=== PATIENT | male | born 1965 | race Asian ===

== ENCOUNTER 2019-12-27 11:00 | Inpatient (IN) ==
[2019-12-27 14:24] LABS: Red Cell Distribution Width 13.4 % (11.5-14.5)
[2019-12-27 14:25] LABS: Hematocrit 36.3 % (37.5-50.1); Immature Platelets 6.4 % (1.1-6.1); Mean Corpuscular HGB Conc 33.1 g/dL (31.6-35.5); Mean Corpuscular Hemoglobin 30.8 pg (28.0-33.3); Mean Corpuscular Volume 93.1 fL (83.0-100.0); Mean Platelet Volume 10.7 fL (9.4-12.4); White Blood Count 2.7 K/mcL (4.3-11.1)
[2019-12-27 14:28] LABS: INR 1.1; Prothrombin Time 13.2 Seconds (9.4-12.1)
[2019-12-27 14:30] LABS: Activated Partial Thrombo Time 35.3 Seconds (26.0-36.0)
[2019-12-27 14:42] LABS: Alanine Aminotransferase 11 Units/L (7-52); Alkaline Phosphatase 241 Units/L (34-104); Aspartate Amino Transferase 30 Units/L (13-39); BUN/Creatinine Ratio 6 (6-26); Bilirubin,Direct 0.3 mg/dL (0.0-0.2); Bilirubin,Indirect 0.4 mg/dL (0.0-1.0); Bilirubin,Total 0.7 mg/dL (0.3-1.0); Blood Urea Nitrogen 29 mg/dL (6-20); C-Reactive Protein 29 mg/L (Less than 10); Calcium 8.5 mg/dL (8.6-10.3); Carbon Dioxide 27 mEq/L (23-29); Chloride 83 mEq/L (98-107); Globulin 3.9 g/dL (2.4-3.5); Glucose 126 mg/dL (70-105); Lactate Dehydrogenase 122 Units/L (140-271); Magnesium 1.9 mg/dL (1.6-2.6); Osmolality,Calculated 259 (280-300); Phosphorous 4.3 mg/dL (2.7-4.5); Potassium 3.9 mEq/L (3.5-5.1); Sodium 121 mEq/L (136-145); Total Protein 7.9 g/dL (6.4-8.9); Troponin I < 0.03 ng/mL (< 0.04); eGFR For African Americans 15 (> 60); eGFR For Non-African Americans 13 (> 60)
[2019-12-27 14:45] LABS: Procalcitonin 0.34 ng/mL (0.00-0.15)
[2019-12-27 14:57] LABS: Ferritin 1084 ng/mL (20-250)
[2019-12-27 15:01] LABS: Platelet Count 86 K/mcL (140-400)
[2019-12-27 15:09] LABS: Lymphocytes # 1.1 K/mcL (0.6-4.6); Monocytes # 0.4 K/mcL (0.0-1.3); Neutrophils # 1.3 K/mcL (1.6-8.9); Platelet Estimate Slight Decrease (Normal); Reactive Lymphocytes Present (Not Present)
[2019-12-27 16:17] LABS: Hepatitis B Surface Antibody > 850.00 mIU/mL
[2019-12-27 16:28] LABS: Hepatitis B Surface Antigen Nonreactive (Nonreactive)
[2019-12-27] MEDS ORDERED: Naloxone 0.4 MG/ML INJ IVP PRN (16:54)
[2019-12-27] MEDS ORDERED: Furosemide 40 MG/4 ML VIAL IVP ONE (17:07)
[2019-12-27] MEDS ORDERED: Dexamethasone 4 MG/ML VIAL IVP PRN (17:08)
[2019-12-27] MEDS ORDERED: D5% in Water 1,000 ML IVC PRN (17:42)
[2019-12-27] MEDS ORDERED: *HR* Dextrose 50 % in Water (Vial) 50 ML VIAL IVP PRN (17:42)
[2019-12-27] MEDS ORDERED: Dextrose Gel 15 GM/37.5 ML TUBE PO PRN ×2 (17:42)
[2019-12-27] MEDS: amLODIPine 5 MG TABLET PO SCH (18:22)
[2019-12-27] MEDS: cefTRIAXone 1,000 MG in 0.9 % Sodium Chloride Mini Bag 100 ML IVPB SCH (18:22)
[2019-12-27] MEDS: Azithromycin 500 MG in 0.9 % Sodium Chloride 250 ML IVPB SCH (18:22)
[2019-12-27] MEDS: *HR* HYDROcodone/Acet 5/325 mg TABLET PO PRN (18:23)
[2019-12-27] MEDS: *HR* Heparin 5,000 UNIT/ML VIAL SQ SCH (18:23)
[2019-12-27] MEDS: Melatonin 3 MG TABLET PO SCH (20:18)
[2019-12-27] MEDS: levETIRAcetam 250 MG TABLET PO SCH (20:18)
[2019-12-27] MEDS: OLANZapine 5 MG TAB.RAPDIS PO SCH (20:18)
[2019-12-27] MEDS: CarBAMazepine XR (12 hr) 100 MG TAB PO SCH (20:18)
[2019-12-27] MEDS: traZODone 50 MG TABLET PO SCH (20:18)
[2019-12-27] MEDS: Insulin LISPRO 300 UNITS/3 ML VIAL SQ SCH (20:19)
[2019-12-27] MEDS: Ergocalciferol (VIT D2) 50,000 UNIT (1.25MG) CAP PO SCH ×2 (21:33→22:06)
[2019-12-27] MEDS: Hydrocortisone Lotion 59 ML BOTTLE TP SCH (22:03)
[2019-12-27] MEDS: Acetaminophen 325 MG TABLET PO PRN (23:24)
[2019-12-28 01:18] LABS: Immature Granulocytes % 0.7 % (0-4); Mean Platelet Volume 11.2 fL (9.4-12.4); Red Cell Distribution Width 13.3 % (11.5-14.5)
[2019-12-28 01:20] LABS: Hematocrit 33.7 % (37.5-50.1); Hemoglobin 11.4 g/dL (12.9-16.9); Immature Platelets 7.5 % (1.1-6.1); Lymphocytes # 0.5 K/mcL (0.6-4.6); Lymphocytes % 16.8 %; Mean Corpuscular HGB Conc 33.8 g/dL (31.6-35.5); Mean Corpuscular Hemoglobin 29.9 pg (28.0-33.3); Mean Corpuscular Volume 88.5 fL (83.0-100.0); Monocytes # 0.2 K/mcL (0.0-1.3); Monocytes % 7.5 %; Neutrophils # 2.1 K/mcL (1.6-8.9); Red Blood Count 3.81 M/mcL (4.19-5.50); White Blood Count 2.8 K/mcL (4.3-11.1)
[2019-12-28 01:26] LABS: Platelet Count 77 K/mcL (140-400)
[2019-12-28] MEDS: *HR* HYDROcodone/Acet 5/325 mg TABLET PO PRN ×2 (01:29→19:59)
[2019-12-28 01:37] LABS: Calcium 8.3 mg/dL (8.6-10.3); Phosphorous 4.6 mg/dL (2.7-4.5); Potassium 4.1 mEq/L (3.5-5.1)
[2019-12-28] MEDS: *HR* Heparin 5,000 UNIT/ML VIAL SQ SCH ×3 (05:28→17:47)
[2019-12-28] MEDS ORDERED: Furosemide 40 MG/4 ML VIAL IVP SCH (08:00)
[2019-12-28] MEDS: Insulin LISPRO 300 UNITS/3 ML VIAL SQ SCH ×4 (08:36→22:13)
[2019-12-28] MEDS: amLODIPine 5 MG TABLET PO SCH (08:38)
[2019-12-28] MEDS: CarBAMazepine XR (12 hr) 100 MG TAB PO SCH ×2 (08:38→19:59)
[2019-12-28] MEDS: Hydrocortisone Lotion 59 ML BOTTLE TP SCH ×3 (08:39→19:59)
[2019-12-28] MEDS: levETIRAcetam 250 MG TABLET PO SCH ×2 (08:39→19:59)
[2019-12-28] MEDS ORDERED: *HR* Heparin 10,000 UNIT/10 ML VIAL IV PRN ×2 (08:50)
[2019-12-28] MEDS ORDERED: 0.9 % Sodium Chloride 250 ML IVC PRN (08:50)
[2019-12-28] MEDS ORDERED: 0.9 % Sodium Chloride 1,000 ML PRIME SCH (09:00)
[2019-12-28] MEDS ORDERED: Dexamethasone 4 MG/ML VIAL IVP SCH (10:15)
[2019-12-28] MEDS ORDERED: hydrALAZINE 10 MG TABLET PO SCH (10:30)
[2019-12-28 13:18] LABS: Estimated Average Glucose 128 mg/dl
[2019-12-28 15:08] LABS: Adenovirus Not Detected (Not Detect); Coronavirus 229E Not Detected (Not Detect); Coronavirus HKU1 Not Detected (Not Detect); Coronavirus NL63 Not Detected (Not Detect); Coronavirus OC43 Not Detected (Not Detect)
[2019-12-28 15:10] LABS: Bordetella Pertussis Not Detected (Not Detect); Chlamydophila pneumoniae Not Detected (Not Detect); Human Metapneumovirus Not Detected (Not Detect); Human Rhinovirus/Enterovirus Not Detected (Not Detect); Influenza A Subtype 2009 H1 Not Detected (Not Detect); Influenza B Not Detected (Not Detect); Mycoplasma pneumoniae Not Detected (Not Detect); Parainfluenza Virus 1 Not Detected (Not Detect); Parainfluenza Virus 2 Not Detected (Not Detect); Parainfluenza Virus 3 Not Detected (Not Detect); Parainfluenza Virus 4 Not Detected (Not Detect); Respiratory Syncytial Virus Not Detected (Not Detect); SARS-CoV-2 DETECTED (Not Detect)
[2019-12-28] MEDS: Azithromycin 500 MG in 0.9 % Sodium Chloride 250 ML IVPB SCH (17:31)
[2019-12-28] MEDS: cefTRIAXone 1,000 MG in 0.9 % Sodium Chloride Mini Bag 100 ML IVPB SCH (17:31)
[2019-12-28] MEDS: OLANZapine 5 MG TAB.RAPDIS PO SCH (19:59)
[2019-12-28] MEDS: Melatonin 3 MG TABLET PO SCH (19:59)
[2019-12-28] MEDS: traZODone 50 MG TABLET PO SCH (19:59)
[2019-12-28] MEDS ORDERED: 0.9 % Sodium Chloride 250 ML ONE (23:08)
[2019-12-29] MEDS: *HR* HYDROcodone/Acet 5/325 mg TABLET PO PRN ×3 (03:16→23:54)
[2019-12-29 03:58] LABS: Eosinophils % 0.3 %; Immature Granulocytes % 0.3 % (0-4); Mean Corpuscular Volume 92.9 fL (83.0-100.0)
[2019-12-29 04:00] LABS: Basophils % 0.5 %; Hematocrit 32.8 % (37.5-50.1); Hemoglobin 10.9 g/dL (12.9-16.9); Immature Platelets 6.6 % (1.1-6.1); Lymphocytes # 0.9 K/mcL (0.6-4.6); Lymphocytes % 21.3 %; Mean Corpuscular HGB Conc 33.2 g/dL (31.6-35.5); Mean Corpuscular Hemoglobin 30.9 pg (28.0-33.3); Mean Platelet Volume 11.2 fL (9.4-12.4); Monocytes # 0.6 K/mcL (0.0-1.3); Monocytes % 14.8 %; Neutrophils # 2.5 K/mcL (1.6-8.9); Red Blood Count 3.53 M/mcL (4.19-5.50); Red Cell Distribution Width 13.5 % (11.5-14.5); Segmented Neutrophils % 62.8 %
[2019-12-29 04:01] LABS: Platelet Count 83 K/mcL (140-400)
[2019-12-29 04:10] LABS: Phosphorous 4.3 mg/dL (2.7-4.5)
[2019-12-29 04:11] LABS: Calcium 8.3 mg/dL (8.6-10.3); Potassium 4.1 mEq/L (3.5-5.1)
[2019-12-29] MEDS: *HR* Heparin 5,000 UNIT/ML VIAL SQ SCH ×2 (05:19→17:03)
[2019-12-29] MEDS: Insulin LISPRO 300 UNITS/3 ML VIAL SQ SCH ×4 (07:44→20:30)
[2019-12-29] MEDS ORDERED: Furosemide 40 MG/4 ML VIAL IVP ONE (07:45)
[2019-12-29] MEDS ORDERED: Spironolactone 25 MG TABLET PO ONE (07:45)
[2019-12-29] MEDS: amLODIPine 5 MG TABLET PO SCH (07:53)
[2019-12-29] MEDS: levETIRAcetam 250 MG TABLET PO SCH ×2 (07:53→20:34)
[2019-12-29] MEDS: hydrALAZINE 10 MG TABLET PO SCH ×3 (07:53→20:35)
[2019-12-29] MEDS: CarBAMazepine XR (12 hr) 100 MG TAB PO SCH ×2 (07:53→20:34)
[2019-12-29] MEDS: Hydrocortisone Lotion 59 ML BOTTLE TP SCH ×3 (08:19→20:43)
[2019-12-29] MEDS ORDERED: 0.9 % Sodium Chloride 250 ML IVC PRN (09:22)
[2019-12-29] MEDS ORDERED: 0.9 % Sodium Chloride 1,000 ML PRIME SCH (09:30)
[2019-12-29] MEDS ORDERED: *HR* Labetalol 20 MG/4 ML SYRINGE IVP ONE ×2 (12:14→17:56)
[2019-12-29] MEDS: Azithromycin 250 MG TABLET PO SCH (17:01)
[2019-12-29] MEDS: cefTRIAXone 1,000 MG in Water for inj. (sterile) 10 ML IVP SCH (17:02)
[2019-12-29] MEDS: traZODone 50 MG TABLET PO SCH (20:34)
[2019-12-29] MEDS: OLANZapine 5 MG TAB.RAPDIS PO SCH (20:34)
[2019-12-29] MEDS: Melatonin 3 MG TABLET PO SCH (20:35)
[2019-12-30 04:12] LABS: Basophils % 0.6 %; Eosinophils % 0.3 %; Hemoglobin 10.5 g/dL (12.9-16.9); Red Cell Distribution Width 13.8 % (11.5-14.5)
[2019-12-30 04:14] LABS: Hematocrit 32.7 % (37.5-50.1); Immature Granulocytes % 0.6 % (0-4); Immature Platelets 7.6 % (1.1-6.1); Lymphocytes # 0.9 K/mcL (0.6-4.6); Lymphocytes % 25.3 %; Mean Corpuscular HGB Conc 32.1 g/dL (31.6-35.5); Mean Corpuscular Hemoglobin 29.8 pg (28.0-33.3); Mean Corpuscular Volume 92.9 fL (83.0-100.0); Mean Platelet Volume 11.4 fL (9.4-12.4); Monocytes # 0.7 K/mcL (0.0-1.3); Monocytes % 19.2 %; Neutrophils # 1.9 K/mcL (1.6-8.9); Platelet Count 75 K/mcL (140-400); Red Blood Count 3.52 M/mcL (4.19-5.50); White Blood Count 3.6 K/mcL (4.3-11.1)
[2019-12-30 04:19] LABS: Calcium 8.4 mg/dL (8.6-10.3); Magnesium 1.9 mg/dL (1.6-2.6); Phosphorous 3.8 mg/dL (2.7-4.5); Potassium 4.2 mEq/L (3.5-5.1)
[2019-12-30 04:52] LABS: Platelet Estimate Decreased (Normal)
[2019-12-30 04:53] LABS: Reactive Lymphocytes Present (Not Present)
[2019-12-30] MEDS: *HR* Heparin 5,000 UNIT/ML VIAL SQ SCH (05:38)
[2019-12-30] MEDS: *HR* HYDROcodone/Acet 5/325 mg TABLET PO PRN ×2 (06:41→13:09)
[2019-12-30] MEDS: hydrALAZINE 10 MG TABLET PO SCH ×2 (08:01→16:10)
[2019-12-30] MEDS: levETIRAcetam 250 MG TABLET PO SCH ×2 (08:01→20:09)
[2019-12-30] MEDS: CarBAMazepine XR (12 hr) 100 MG TAB PO SCH ×2 (08:02→20:09)
[2019-12-30] MEDS: Insulin LISPRO 300 UNITS/3 ML VIAL SQ SCH ×4 (08:02→22:30)
[2019-12-30] MEDS: Hydrocortisone Lotion 59 ML BOTTLE TP SCH ×3 (08:03→20:09)
[2019-12-30] MEDS ORDERED: NIFEdipine XL (24 HR) 60 MG TAB.ER.24 PO SCH (09:00)
[2019-12-30] MEDS: cefTRIAXone 1,000 MG in Water for inj. (sterile) 10 ML IVP SCH (16:09)
[2019-12-30] MEDS: Acetaminophen 325 MG TABLET PO PRN (16:10)
[2019-12-30] MEDS: Azithromycin 250 MG TABLET PO SCH (16:10)
[2019-12-30] MEDS ORDERED: Furosemide 40 MG/4 ML VIAL IVP ONE (16:54)
[2019-12-30] MEDS: hydrALAZINE 25 MG TABLET PO SCH (20:09)
[2019-12-30] MEDS: Melatonin 3 MG TABLET PO SCH (20:09)
[2019-12-30] MEDS: OLANZapine 5 MG TAB.RAPDIS PO SCH (20:10)
[2019-12-30] MEDS: *HR* HYDROcodone/Acet 10/325 mg TABLET PO PRN (20:10)
[2019-12-30] MEDS: traZODone 50 MG TABLET PO SCH (20:10)
[2019-12-31] MEDS: *HR* HYDROcodone/Acet 10/325 mg TABLET PO PRN ×3 (02:47→14:52)
[2019-12-31 03:47] LABS: Calcium 8.5 mg/dL (8.6-10.3); Potassium 4.5 mEq/L (3.5-5.1)
[2019-12-31 03:50] LABS: Hemoglobin 11.3 g/dL (12.9-16.9); Immature Granulocytes % 0.2 % (0-4)
[2019-12-31 03:51] LABS: Basophils % 0.5 %; Eosinophils # 0.1 K/mcL (0.0-0.6); Eosinophils % 2.2 %; Immature Platelets 6.6 % (1.1-6.1); Lymphocytes # 0.9 K/mcL (0.6-4.6); Lymphocytes % 21.8 %; Mean Corpuscular HGB Conc 33.2 g/dL (31.6-35.5); Mean Corpuscular Hemoglobin 31.3 pg (28.0-33.3); Mean Corpuscular Volume 94.2 fL (83.0-100.0); Mean Platelet Volume 11.4 fL (9.4-12.4); Monocytes # 0.6 K/mcL (0.0-1.3); Monocytes % 14.8 %; Neutrophils # 2.5 K/mcL (1.6-8.9); Red Blood Count 3.61 M/mcL (4.19-5.50); Red Cell Distribution Width 13.6 % (11.5-14.5); Segmented Neutrophils % 60.5 %; White Blood Count 4.1 K/mcL (4.3-11.1)
[2019-12-31 04:10] LABS: Platelet Count 88 K/mcL (140-400)
[2019-12-31] MEDS: Acetaminophen 325 MG TABLET PO PRN ×3 (05:03→17:52)
[2019-12-31] MEDS: CarBAMazepine XR (12 hr) 100 MG TAB PO SCH ×2 (07:43→20:39)
[2019-12-31] MEDS: levETIRAcetam 250 MG TABLET PO SCH ×2 (07:44→20:38)
[2019-12-31] MEDS: NIFEdipine XL (24 HR) 30 MG TAB.ER.24 PO SCH (07:44)
[2019-12-31] MEDS: Insulin LISPRO 300 UNITS/3 ML VIAL SQ SCH ×4 (08:00→20:55)
[2019-12-31] MEDS: hydrALAZINE 25 MG TABLET PO SCH ×3 (08:42→20:38)
[2019-12-31] MEDS: Hydrocortisone Lotion 59 ML BOTTLE TP SCH ×3 (08:54→20:38)
[2019-12-31] MEDS ORDERED: Furosemide 40 MG/4 ML VIAL IVP ONE (10:25)
[2019-12-31] MEDS ORDERED: Furosemide 40 MG/4 ML VIAL ONE (11:56)
[2019-12-31] MEDS: Dexamethasone 4 MG/ML VIAL IVP SCH (13:51)
[2019-12-31] MEDS ORDERED: Cefdinir 300 MG CAPSULE PO SCH (16:00)
[2019-12-31] MEDS: Azithromycin 250 MG TABLET PO SCH (17:08)
[2019-12-31] MEDS: traZODone 50 MG TABLET PO SCH (20:39)
[2019-12-31] MEDS: Melatonin 3 MG TABLET PO SCH (20:39)
[2019-12-31] MEDS: OLANZapine 5 MG TAB.RAPDIS PO SCH (20:39)
[2019-12-31] MEDS: *HR* HYDROmorphone (PF) 1 MG/ML SYRINGE IVP PRN (20:42)
[2020-01-01] MEDS: *HR* HYDROmorphone (PF) 1 MG/ML SYRINGE IVP PRN ×2 (00:12→23:28)
[2020-01-01] MEDS: niCARdipine 20 MG/200 ML MLS IVC SCH ×4 (01:05→12:22)
[2020-01-01] MEDS: *HR* HYDROcodone/Acet 10/325 mg TABLET PO PRN ×2 (01:53→09:26)
[2020-01-01 05:37] LABS: Basophils % 0.2 %; Eosinophils # 0.1 K/mcL (0.0-0.6); Eosinophils % 1.2 %; Hematocrit 34.1 % (37.5-50.1); Hemoglobin 11.3 g/dL (12.9-16.9); Immature Granulocytes % 0.2 % (0-4); Lymphocytes # 1.1 K/mcL (0.6-4.6); Lymphocytes % 25.5 %; Mean Corpuscular HGB Conc 33.1 g/dL (31.6-35.5); Mean Corpuscular Hemoglobin 30.5 pg (28.0-33.3); Mean Corpuscular Volume 92.2 fL (83.0-100.0); Mean Platelet Volume 11.4 fL (9.4-12.4); Monocytes # 0.7 K/mcL (0.0-1.3); Monocytes % 15.3 %; Neutrophils # 2.5 K/mcL (1.6-8.9); Platelet Count 112 K/mcL (140-400); Red Cell Distribution Width 13.6 % (11.5-14.5); Segmented Neutrophils % 57.6 %; White Blood Count 4.3 K/mcL (4.3-11.1)
[2020-01-01 05:55] LABS: Calcium 8.6 mg/dL (8.6-10.3); Magnesium 1.9 mg/dL (1.6-2.6); Phosphorous 5.1 mg/dL (2.7-4.5); Potassium 4.9 mEq/L (3.5-5.1)
[2020-01-01 06:23] LABS: Platelet Estimate Slight Decrease (Normal)
[2020-01-01] MEDS ORDERED: 0.9 % Sodium Chloride 250 ML IVC PRN (07:26)
[2020-01-01] MEDS: Dexamethasone 4 MG/ML VIAL IVP SCH (08:08)
[2020-01-01] MEDS: levETIRAcetam 250 MG TABLET PO SCH ×2 (08:08→19:54)
[2020-01-01] MEDS: CarBAMazepine XR (12 hr) 100 MG TAB PO SCH ×2 (08:08→19:54)
[2020-01-01] MEDS: Insulin LISPRO 300 UNITS/3 ML VIAL SQ SCH ×4 (08:10→20:33)
[2020-01-01] MEDS: hydrALAZINE 25 MG TABLET PO SCH ×3 (08:12→19:53)
[2020-01-01] MEDS: NIFEdipine XL (24 HR) 30 MG TAB.ER.24 PO SCH (08:13)
[2020-01-01] MEDS: Hydrocortisone Lotion 59 ML BOTTLE TP SCH ×3 (12:21→20:34)
[2020-01-01 14:40] LABS: Potassium 3.6 mEq/L (3.5-5.1)
[2020-01-01] MEDS ORDERED: Cefdinir 300 MG CAPSULE PO SCH (16:00)
[2020-01-01] MEDS: Acetaminophen 325 MG TABLET PO PRN (16:56)
[2020-01-01] MEDS: OLANZapine 5 MG TAB.RAPDIS PO SCH (19:54)
[2020-01-01] MEDS: traZODone 50 MG TABLET PO SCH (19:54)
[2020-01-01] MEDS: Melatonin 3 MG TABLET PO SCH (19:55)
[2020-01-02] MEDS: *HR* HYDROmorphone (PF) 1 MG/ML SYRINGE IVP PRN ×4 (04:47→20:32)
[2020-01-02 08:22] LABS: Immature Granulocytes % 0.4 % (0-4); Red Blood Count 3.58 M/mcL (4.19-5.50)
[2020-01-02 08:24] LABS: Basophils % 0.6 %; Eosinophils # 0.1 K/mcL (0.0-0.6); Eosinophils % 1.2 %; Hematocrit 33.4 % (37.5-50.1); Hemoglobin 11.3 g/dL (12.9-16.9); Immature Platelets 5.2 % (1.1-6.1); Lymphocytes # 0.8 K/mcL (0.6-4.6); Lymphocytes % 16.8 %; Mean Corpuscular HGB Conc 33.8 g/dL (31.6-35.5); Mean Corpuscular Hemoglobin 31.6 pg (28.0-33.3); Mean Corpuscular Volume 93.3 fL (83.0-100.0); Mean Platelet Volume 11.1 fL (9.4-12.4); Monocytes # 0.8 K/mcL (0.0-1.3); Neutrophils # 3.1 K/mcL (1.6-8.9); Platelet Count 114 K/mcL (140-400); Red Cell Distribution Width 13.5 % (11.5-14.5); White Blood Count 4.8 K/mcL (4.3-11.1)
[2020-01-02] MEDS: Insulin LISPRO 300 UNITS/3 ML VIAL SQ SCH ×3 (08:31→17:30)
[2020-01-02] MEDS: levETIRAcetam 250 MG TABLET PO SCH ×2 (08:33→20:30)
[2020-01-02] MEDS: CarBAMazepine XR (12 hr) 100 MG TAB PO SCH ×2 (08:33→20:29)
[2020-01-02] MEDS: NIFEdipine XL (24 HR) 30 MG TAB.ER.24 PO SCH (08:34)
[2020-01-02] MEDS: hydrALAZINE 25 MG TABLET PO SCH ×3 (08:34→20:30)
[2020-01-02] MEDS: Acetaminophen 325 MG TABLET PO PRN (08:34)
[2020-01-02] MEDS: Dexamethasone 4 MG/ML VIAL IVP SCH (08:34)
[2020-01-02] MEDS: cloNIDine HCL 0.1 MG TABLET PO SCH ×3 (08:34→20:30)
[2020-01-02] MEDS: Hydrocortisone Lotion 59 ML BOTTLE TP SCH ×3 (08:37→20:54)
[2020-01-02 08:41] LABS: Calcium 8.5 mg/dL (8.6-10.3); Magnesium 1.9 mg/dL (1.6-2.6); Potassium 4.1 mEq/L (3.5-5.1)
[2020-01-02] MEDS ORDERED: carvediloL 25 MG TABLET PO SCH (17:41)
[2020-01-02] MEDS: Melatonin 3 MG TABLET PO SCH (20:29)
[2020-01-02] MEDS: OLANZapine 5 MG TAB.RAPDIS PO SCH (20:30)
[2020-01-02] MEDS: traZODone 50 MG TABLET PO SCH (20:30)
[2020-01-02] MEDS: Furosemide 40 MG/4 ML VIAL IVP SCH (20:31)
[2020-01-03 04:20] LABS: Basophils % 0.5 %
[2020-01-03 04:23] LABS: Eosinophils # 0.1 K/mcL (0.0-0.6); Eosinophils % 2.2 %; Hematocrit 31.4 % (37.5-50.1); Hemoglobin 10.3 g/dL (12.9-16.9); Immature Granulocytes % 0.2 % (0-4); Immature Platelets 7.1 % (1.1-6.1); Lymphocytes # 0.9 K/mcL (0.6-4.6); Lymphocytes % 21.9 %; Mean Corpuscular HGB Conc 32.8 g/dL (31.6-35.5); Mean Corpuscular Hemoglobin 31.7 pg (28.0-33.3); Mean Corpuscular Volume 96.6 fL (83.0-100.0); Mean Platelet Volume 10.6 fL (9.4-12.4); Monocytes # 0.7 K/mcL (0.0-1.3); Monocytes % 16.7 %; Platelet Count 101 K/mcL (140-400); Red Blood Count 3.25 M/mcL (4.19-5.50); Red Cell Distribution Width 13.7 % (11.5-14.5); Segmented Neutrophils % 58.5 %
[2020-01-03 04:27] LABS: Neutrophils # 2.3 K/mcL (1.6-8.9)
[2020-01-03 04:42] LABS: Calcium 8.2 mg/dL (8.6-10.3); Magnesium 1.9 mg/dL (1.6-2.6); Phosphorous 4.6 mg/dL (2.7-4.5); Potassium 4.5 mEq/L (3.5-5.1)
[2020-01-03] MEDS: Insulin LISPRO 300 UNITS/3 ML VIAL SQ SCH ×5 (06:09→21:53)
[2020-01-03 06:55] LABS: Platelet Estimate Slight Decrease (Normal); Reactive Lymphocytes Present (Not Present)
[2020-01-03] MEDS ORDERED: *HR* Heparin 10,000 UNIT/10 ML VIAL IV PRN (07:35)
[2020-01-03] MEDS ORDERED: 0.9 % Sodium Chloride 250 ML IVC PRN (07:35)
[2020-01-03] MEDS ORDERED: 0.9 % Sodium Chloride 1,000 ML PRIME SCH (07:45)
[2020-01-03] MEDS: Dexamethasone 4 MG/ML VIAL IVP SCH (08:33)
[2020-01-03] MEDS: levETIRAcetam 250 MG TABLET PO SCH ×2 (08:34→21:31)
[2020-01-03] MEDS: CarBAMazepine XR (12 hr) 100 MG TAB PO SCH ×2 (08:34→21:30)
[2020-01-03] MEDS: Hydrocortisone Lotion 59 ML BOTTLE TP SCH ×3 (08:34→21:53)
[2020-01-03] MEDS: *HR* HYDROmorphone (PF) 1 MG/ML SYRINGE IVP PRN ×3 (08:50→21:31)
[2020-01-03] MEDS ORDERED: Benzonatate 100 MG CAPSULE PO PRN (12:17)
[2020-01-03] MEDS: carvediloL 25 MG TABLET PO SCH (15:54)
[2020-01-03] MEDS: hydrALAZINE 25 MG TABLET PO SCH ×2 (15:55→21:31)
[2020-01-03] MEDS: cloNIDine HCL 0.1 MG TABLET PO SCH ×2 (15:55→21:30)
[2020-01-03] MEDS: Ergocalciferol (VIT D2) 50,000 UNIT (1.25MG) CAP PO SCH (15:56)
[2020-01-03] MEDS: NIFEdipine XL (24 HR) 30 MG TAB.ER.24 PO SCH (15:59)
[2020-01-03] MEDS: Ipratropium 1 PUFF INHALER IH SCH ×2 (16:01→21:43)
[2020-01-03] MEDS: Furosemide 40 MG/4 ML VIAL IVP SCH ×2 (16:05→21:31)
[2020-01-03] MEDS: OLANZapine 5 MG TAB.RAPDIS PO SCH (21:30)
[2020-01-03] MEDS: traZODone 50 MG TABLET PO SCH (21:31)
[2020-01-03] MEDS: Melatonin 3 MG TABLET PO SCH (21:31)
[2020-01-04] MEDS: Acetaminophen 325 MG TABLET PO PRN ×3 (02:10→22:20)
[2020-01-04] MEDS: *HR* HYDROmorphone (PF) 1 MG/ML SYRINGE IVP PRN ×3 (02:14→23:52)
[2020-01-04] MEDS: Ipratropium 1 PUFF INHALER IH SCH ×4 (03:10→19:46)
[2020-01-04 04:31] LABS: Hematocrit 28.5 % (37.5-50.1); Immature Platelets 7.6 % (1.1-6.1); Mean Corpuscular HGB Conc 35.1 g/dL (31.6-35.5); Mean Corpuscular Hemoglobin 33.6 pg (28.0-33.3); Mean Corpuscular Volume 95.6 fL (83.0-100.0); Red Blood Count 2.98 M/mcL (4.19-5.50); Red Cell Distribution Width 13.8 % (11.5-14.5); White Blood Count 4.1 K/mcL (4.3-11.1)
[2020-01-04 04:39] LABS: INR 1.2; Prothrombin Time 14.2 Seconds (9.4-12.1)
[2020-01-04 04:40] LABS: Activated Partial Thrombo Time 30.7 Seconds (26.0-36.0)
[2020-01-04 04:48] LABS: Calcium 8.2 mg/dL (8.6-10.3); Magnesium 1.9 mg/dL (1.6-2.6); Phosphorous 3.5 mg/dL (2.7-4.5); Potassium 3.7 mEq/L (3.5-5.1)
[2020-01-04 04:55] LABS: Albumin 3.3 g/dL (3.5-5.7); Albumin/Globulin Ratio 0.9 (1.1-2.2); Bilirubin,Total 0.6 mg/dL (0.3-1.0); Calcium 8.2 mg/dL (8.6-10.3); Globulin 3.7 g/dL (2.4-3.5); Potassium 3.8 mEq/L (3.5-5.1)
[2020-01-04 04:56] LABS: Procalcitonin 0.47 ng/mL (0.00-0.15)
[2020-01-04 05:13] LABS: Folate 7.1 ng/mL (3.0-16.0)
[2020-01-04] MEDS ORDERED: Finasteride 5 MG TABLET PO SCH (09:00)
[2020-01-04] MEDS: Insulin LISPRO 300 UNITS/3 ML VIAL SQ SCH ×3 (09:15→17:40)
[2020-01-04] MEDS: carvediloL 25 MG TABLET PO SCH (09:16)
[2020-01-04] MEDS: cloNIDine HCL 0.1 MG TABLET PO SCH ×3 (09:16→19:40)
[2020-01-04] MEDS: Hydrocortisone Lotion 59 ML BOTTLE TP SCH ×3 (09:17→20:00)
[2020-01-04] MEDS: hydrALAZINE 25 MG TABLET PO SCH ×3 (09:17→19:39)
[2020-01-04] MEDS: levETIRAcetam 250 MG TABLET PO SCH ×2 (09:17→19:39)
[2020-01-04] MEDS: Furosemide 40 MG/4 ML VIAL IVP SCH (09:17)
[2020-01-04] MEDS: CarBAMazepine XR (12 hr) 100 MG TAB PO SCH ×2 (09:18→19:40)
[2020-01-04] MEDS: NIFEdipine XL (24 HR) 30 MG TAB.ER.24 PO SCH (09:18)
[2020-01-04] MEDS: Renal Vitamin 1 CAP CAPSULE PO SCH (09:18)
[2020-01-04] MEDS ORDERED: 0.9 % Sodium Chloride 250 ML IVC PRN (15:55)
[2020-01-04] MEDS ORDERED: carvediloL 25 MG TABLET PO SCH (17:00)
[2020-01-04] MEDS ORDERED: *HR* Heparin 5,000 UNIT/ML VIAL SQ SCH (18:00)
[2020-01-04] MEDS: Melatonin 3 MG TABLET PO SCH (19:39)
[2020-01-04] MEDS: OLANZapine 5 MG TAB.RAPDIS PO SCH (19:40)
[2020-01-04] MEDS: traZODone 50 MG TABLET PO SCH (19:40)
[2020-01-05] MEDS: hydrALAZINE 25 MG TABLET PO SCH ×4 (02:36→20:22)
[2020-01-05] MEDS: Ipratropium 1 PUFF INHALER IH SCH ×4 (03:14→20:56)
[2020-01-05 03:25] LABS: Calcium 8.4 mg/dL (8.6-10.3); Magnesium 1.9 mg/dL (1.6-2.6); Phosphorous 4.4 mg/dL (2.7-4.5); Potassium 4.1 mEq/L (3.5-5.1)
[2020-01-05] MEDS: *HR* HYDROmorphone (PF) 1 MG/ML SYRINGE IVP PRN ×3 (04:16→20:24)
[2020-01-05] MEDS: Hydrocortisone Lotion 59 ML BOTTLE TP SCH ×3 (09:00→20:23)
[2020-01-05] MEDS: CarBAMazepine XR (12 hr) 100 MG TAB PO SCH ×2 (09:40→20:22)
[2020-01-05] MEDS: Renal Vitamin 1 CAP CAPSULE PO SCH (09:40)
[2020-01-05] MEDS: levETIRAcetam 250 MG TABLET PO SCH ×2 (09:41→20:23)
[2020-01-05] MEDS: Insulin LISPRO 300 UNITS/3 ML VIAL SQ SCH ×3 (09:42→17:00)
[2020-01-05] MEDS: cloNIDine HCL 0.1 MG TABLET PO SCH ×3 (10:10→20:21)
[2020-01-05] MEDS: NIFEdipine XL (24 HR) 30 MG TAB.ER.24 PO SCH (10:11)
[2020-01-05 10:38] LABS: Hepatitis B Surface Antigen Nonreactive (Nonreactive)
[2020-01-05 11:07] LABS: Hepatitis C Virus Antibody Nonreactive (Nonreactive)
[2020-01-05 11:08] LABS: Hepatitis B Core IgM Nonreactive (Nonreactive)
[2020-01-05 11:09] LABS: Hepatitis A Antibody IgM Nonreactive (Nonreactive)
[2020-01-05 15:18] LABS: Calcium 7.9 mg/dL (8.6-10.3); Potassium 3.9 mEq/L (3.5-5.1)
[2020-01-05] MEDS: traZODone 50 MG TABLET PO SCH (20:22)
[2020-01-05] MEDS: Melatonin 3 MG TABLET PO SCH (20:23)
[2020-01-05] MEDS: OLANZapine 5 MG TAB.RAPDIS PO SCH (20:24)
[2020-01-05 20:58] LABS: Source of Body Fluid ascites
[2020-01-05] MEDS ORDERED: *HR* LORazepam 2 MG/ML VIAL IVP PRN (20:59)
[2020-01-05 23:40] LABS: Appearance of Body Fluid Clear (Clear); Volume of Body Fluid 60 mL
[2020-01-06] MEDS: *HR* HYDROmorphone (PF) 1 MG/ML SYRINGE IVP PRN ×6 (00:37→21:47)
[2020-01-06] MEDS: Ipratropium 1 PUFF INHALER IH SCH ×3 (03:38→15:56)
[2020-01-06] MEDS: CarBAMazepine XR (12 hr) 100 MG TAB PO SCH ×2 (09:05→21:43)
[2020-01-06] MEDS: cloNIDine HCL 0.1 MG TABLET PO SCH ×3 (09:05→21:42)
[2020-01-06] MEDS: Renal Vitamin 1 CAP CAPSULE PO SCH (09:05)
[2020-01-06] MEDS: hydrALAZINE 25 MG TABLET PO SCH ×3 (09:06→21:42)
[2020-01-06] MEDS: levETIRAcetam 250 MG TABLET PO SCH ×2 (09:06→21:43)
[2020-01-06] MEDS: NIFEdipine XL (24 HR) 30 MG TAB.ER.24 PO SCH (09:06)
[2020-01-06] MEDS: Hydrocortisone Lotion 59 ML BOTTLE TP SCH ×3 (09:07→21:43)
[2020-01-06] MEDS: Insulin LISPRO 300 UNITS/3 ML VIAL SQ SCH ×3 (09:07→16:34)
[2020-01-06 10:59] LABS: Bilirubin,Total 0.6 mg/dL (0.3-1.0); Calcium 7.8 mg/dL (8.6-10.3); Globulin 3.1 g/dL (2.4-3.5); Magnesium 1.8 mg/dL (1.6-2.6); Phosphorous 3.5 mg/dL (2.7-4.5); Total Protein 6.1 g/dL (6.4-8.9)
[2020-01-06 11:07] LABS: Hematocrit 28.9 % (37.5-50.1); Hemoglobin 10.4 g/dL (12.9-16.9); Immature Platelets 7.6 % (1.1-6.1); Mean Corpuscular Hemoglobin 34.8 pg (28.0-33.3); Mean Corpuscular Volume 96.7 fL (83.0-100.0); Mean Platelet Volume 11.1 fL (9.4-12.4); Red Blood Count 2.99 M/mcL (4.19-5.50); White Blood Count 4.9 K/mcL (4.3-11.1)
[2020-01-06] MEDS ORDERED: Ipratropium 1 PUFF INHALER IH PRN (16:16)
[2020-01-06] MEDS: Melatonin 3 MG TABLET PO SCH (21:42)
[2020-01-06] MEDS: traZODone 50 MG TABLET PO SCH (21:42)
[2020-01-06] MEDS: OLANZapine 5 MG TAB.RAPDIS PO SCH (21:43)
[2020-01-06] MEDS: Albumin 25% 25gram/100mL 25 GM/100 ML IV.SOLN IVPB SCH (21:43)
[2020-01-07] MEDS: *HR* HYDROmorphone (PF) 1 MG/ML SYRINGE IVP PRN ×5 (02:10→20:59)
[2020-01-07] MEDS: Albumin 25% 25gram/100mL 25 GM/100 ML IV.SOLN IVPB SCH ×2 (04:37→13:48)
[2020-01-07 08:53] LABS: Albumin 3.6 g/dL (3.5-5.7); Albumin/Globulin Ratio 1.3 (1.1-2.2); Bilirubin,Total 0.7 mg/dL (0.3-1.0); Calcium 8.1 mg/dL (8.6-10.3); Globulin 2.8 g/dL (2.4-3.5); Potassium 4.6 mEq/L (3.5-5.1); Total Protein 6.4 g/dL (6.4-8.9)
[2020-01-07] MEDS: Insulin LISPRO 300 UNITS/3 ML VIAL SQ SCH ×3 (09:02→17:13)
[2020-01-07] MEDS: Renal Vitamin 1 CAP CAPSULE PO SCH (09:25)
[2020-01-07] MEDS: CarBAMazepine XR (12 hr) 100 MG TAB PO SCH ×2 (09:25→20:58)
[2020-01-07 09:26] LABS: Basophils % 0.6 %; Eosinophils # 0.1 K/mcL (0.0-0.6); Eosinophils % 2.3 %; Hematocrit 32.2 % (37.5-50.1); Hemoglobin 10.7 g/dL (12.9-16.9); Immature Granulocytes % 0.4 % (0-4); Lymphocytes # 0.9 K/mcL (0.6-4.6); Lymphocytes % 17.7 %; Mean Corpuscular HGB Conc 33.2 g/dL (31.6-35.5); Mean Corpuscular Hemoglobin 31.1 pg (28.0-33.3); Mean Corpuscular Volume 93.6 fL (83.0-100.0); Mean Platelet Volume 10.9 fL (9.4-12.4); Monocytes # 0.5 K/mcL (0.0-1.3); Monocytes % 10.5 %; Neutrophils # 3.5 K/mcL (1.6-8.9); Platelet Count 123 K/mcL (140-400); Red Blood Count 3.44 M/mcL (4.19-5.50); Red Cell Distribution Width 13.7 % (11.5-14.5); Segmented Neutrophils % 68.5 %; White Blood Count 5.1 K/mcL (4.3-11.1)
[2020-01-07] MEDS: Hydrocortisone Lotion 59 ML BOTTLE TP SCH ×3 (09:26→21:00)
[2020-01-07] MEDS: levETIRAcetam 250 MG TABLET PO SCH ×2 (09:26→20:58)
[2020-01-07] MEDS: cloNIDine HCL 0.1 MG TABLET PO SCH ×3 (09:29→20:59)
[2020-01-07] MEDS: NIFEdipine XL (24 HR) 30 MG TAB.ER.24 PO SCH (09:29)
[2020-01-07] MEDS: hydrALAZINE 25 MG TABLET PO SCH ×3 (09:29→20:59)
[2020-01-07] MEDS: Melatonin 3 MG TABLET PO SCH (20:59)
[2020-01-07] MEDS: OLANZapine 5 MG TAB.RAPDIS PO SCH (20:59)
[2020-01-07] MEDS: traZODone 50 MG TABLET PO SCH (20:59)
[2020-01-08] MEDS: *HR* HYDROmorphone (PF) 1 MG/ML SYRINGE IVP PRN ×6 (00:47→23:10)
[2020-01-08] MEDS: Acetaminophen 325 MG TABLET PO PRN (03:39)
[2020-01-08 05:29] LABS: INR 1.2
[2020-01-08 05:30] LABS: Activated Partial Thrombo Time 30.2 Seconds (26.0-36.0)
[2020-01-08 05:34] LABS: Albumin 3.4 g/dL (3.5-5.7); Albumin/Globulin Ratio 1.3 (1.1-2.2); Bilirubin,Total 0.7 mg/dL (0.3-1.0); Calcium 7.9 mg/dL (8.6-10.3); Globulin 2.6 g/dL (2.4-3.5); Potassium 5.2 mEq/L (3.5-5.1)
[2020-01-08] MEDS ORDERED: 0.9 % Sodium Chloride 250 ML IVC PRN (07:17)
[2020-01-08] MEDS: Insulin LISPRO 300 UNITS/3 ML VIAL SQ SCH ×3 (07:31→16:46)
[2020-01-08] MEDS: CarBAMazepine XR (12 hr) 100 MG TAB PO SCH ×2 (08:59→22:17)
[2020-01-08] MEDS: cloNIDine HCL 0.1 MG TABLET PO SCH ×3 (09:00→19:49)
[2020-01-08] MEDS: hydrALAZINE 25 MG TABLET PO SCH ×3 (09:00→19:49)
[2020-01-08] MEDS: NIFEdipine XL (24 HR) 30 MG TAB.ER.24 PO SCH (09:00)
[2020-01-08] MEDS: levETIRAcetam 250 MG TABLET PO SCH ×2 (09:00→19:50)
[2020-01-08] MEDS: Renal Vitamin 1 CAP CAPSULE PO SCH (09:00)
[2020-01-08] MEDS: Hydrocortisone Lotion 59 ML BOTTLE TP SCH ×3 (09:00→22:17)
[2020-01-08] MEDS ORDERED: SODIUM CHLORIDE MINI 0.9% IVP SCH (18:00)
[2020-01-08] MEDS ORDERED: CEFOTAXIME IVP SCH (18:00)
[2020-01-08] MEDS ORDERED: cefTRIAXone 2,000 MG in 0.9 % Sodium Chloride Mini Bag 100 ML IVP SCH (18:00)
[2020-01-08] MEDS ORDERED: cefTRIAXone 2,000 MG in 0.9 % Sodium Chloride 10 ML IVP SCH (18:15)
[2020-01-08 18:20] LABS: Carcinoembryonic Antigen 2.3 ng/mL (Less than 5.0)
[2020-01-08] MEDS: Melatonin 3 MG TABLET PO SCH (19:49)
[2020-01-08] MEDS: OLANZapine 5 MG TAB.RAPDIS PO SCH (19:49)
[2020-01-08] MEDS: traZODone 50 MG TABLET PO SCH (19:50)
[2020-01-08] MEDS ORDERED: Sulfamethoxazole/Trimeth DS 1 EACH TABLET PO SCH (21:00)
[2020-01-09 02:48] LABS: Basophils % 0.5 %; Eosinophils # 0.1 K/mcL (0.0-0.6); Eosinophils % 2.4 %; Hematocrit 32.4 % (37.5-50.1); Immature Granulocytes % 0.5 % (0-4); Immature Platelets 7.1 % (1.1-6.1); Lymphocytes # 0.7 K/mcL (0.6-4.6); Lymphocytes % 16.5 %; Mean Corpuscular HGB Conc 33.3 g/dL (31.6-35.5); Mean Corpuscular Hemoglobin 31.2 pg (28.0-33.3); Mean Corpuscular Volume 93.6 fL (83.0-100.0); Mean Platelet Volume 10.9 fL (9.4-12.4); Monocytes # 0.6 K/mcL (0.0-1.3); Monocytes % 13.4 %; Neutrophils # 2.7 K/mcL (1.6-8.9); Red Blood Count 3.46 M/mcL (4.19-5.50); Red Cell Distribution Width 13.6 % (11.5-14.5); Segmented Neutrophils % 66.7 %; White Blood Count 4.1 K/mcL (4.3-11.1)
[2020-01-09 02:51] LABS: Platelet Count 122 K/mcL (140-400)
[2020-01-09 02:55] LABS: Hemoglobin 10.8 g/dL (12.9-16.9)
[2020-01-09 03:01] LABS: Albumin 3.4 g/dL (3.5-5.7); Albumin/Globulin Ratio 1.3 (1.1-2.2); Bilirubin,Total 0.6 mg/dL (0.3-1.0); Calcium 7.8 mg/dL (8.6-10.3); Globulin 2.7 g/dL (2.4-3.5); Potassium 4.2 mEq/L (3.5-5.1); Total Protein 6.1 g/dL (6.4-8.9)
[2020-01-09] MEDS: *HR* HYDROmorphone (PF) 1 MG/ML SYRINGE IVP PRN ×4 (03:08→19:50)
[2020-01-09 06:32] LABS: Fluid Source for Albumin PERITONEAL FL.
[2020-01-09] MEDS: Insulin LISPRO 300 UNITS/3 ML VIAL SQ SCH ×3 (08:48→16:35)
[2020-01-09] MEDS: levETIRAcetam 250 MG TABLET PO SCH ×2 (08:51→19:49)
[2020-01-09] MEDS: lisinopriL 20 MG TABLET PO SCH (08:52)
[2020-01-09] MEDS: hydrALAZINE 25 MG TABLET PO SCH ×3 (08:52→19:49)
[2020-01-09] MEDS: CarBAMazepine XR (12 hr) 100 MG TAB PO SCH ×2 (08:52→19:49)
[2020-01-09] MEDS: NIFEdipine XL (24 HR) 30 MG TAB.ER.24 PO SCH (08:52)
[2020-01-09] MEDS: Renal Vitamin 1 CAP CAPSULE PO SCH (08:52)
[2020-01-09] MEDS: cloNIDine HCL 0.1 MG TABLET PO SCH ×3 (08:52→19:49)
[2020-01-09] MEDS: Hydrocortisone Lotion 59 ML BOTTLE TP SCH ×3 (11:58→20:04)
[2020-01-09 12:24] LABS: White Blood Count 6.6 K/mcL (4.3-11.1)
[2020-01-09 12:25] LABS: Hemoglobin 10.6 g/dL (12.9-16.9); Monocytes # 0.6 K/mcL (0.0-1.3); Red Blood Count 2.96 M/mcL (4.19-5.50)
[2020-01-09 12:26] LABS: Hematocrit 28.4 % (37.5-50.1); Mean Corpuscular Hemoglobin 35.8 pg (28.0-33.3); Mean Corpuscular Volume 95.9 fL (83.0-100.0)
[2020-01-09 12:27] LABS: Mean Corpuscular HGB Conc 37.3 g/dL (31.6-35.5)
[2020-01-09 12:28] LABS: Red Cell Distribution Width 14.5 % (11.5-14.5)
[2020-01-09 12:29] LABS: Platelet Count 130 K/mcL (140-400)
[2020-01-09 12:30] LABS: Mean Platelet Volume 11.4 fL (9.4-12.4); Neutrophils # 4.8 K/mcL (1.6-8.9); Segmented Neutrophils % 72.8 %
[2020-01-09 12:33] LABS: Eosinophils # 0.1 K/mcL (0.0-0.6); Eosinophils % 1.8 %; Immature Granulocytes % 0.3 % (0-4); Monocytes % 9.6 %
[2020-01-09 12:34] LABS: Basophils % 0.5 %
[2020-01-09 12:42] LABS: Immature Platelets 8.6 % (1.1-6.1)
[2020-01-09] MEDS: traZODone 50 MG TABLET PO SCH (19:49)
[2020-01-09] MEDS: Melatonin 3 MG TABLET PO SCH (19:49)
[2020-01-09] MEDS: OLANZapine 5 MG TAB.RAPDIS PO SCH (20:04)
[2020-01-10] MEDS: *HR* HYDROmorphone (PF) 1 MG/ML SYRINGE IVP PRN ×5 (00:14→17:56)
[2020-01-10 04:20] LABS: Eosinophils % 1.6 %; Immature Granulocytes % 0.4 % (0-4); Red Cell Distribution Width 13.5 % (11.5-14.5)
[2020-01-10 04:22] LABS: Basophils % 0.6 %; Eosinophils # 0.1 K/mcL (0.0-0.6); Hematocrit 30.7 % (37.5-50.1); Hemoglobin 10.5 g/dL (12.9-16.9); Immature Platelets 9.2 % (1.1-6.1); Lymphocytes # 0.9 K/mcL (0.6-4.6); Lymphocytes % 18.1 %; Mean Corpuscular HGB Conc 34.2 g/dL (31.6-35.5); Mean Corpuscular Hemoglobin 31.3 pg (28.0-33.3); Mean Corpuscular Volume 91.6 fL (83.0-100.0); Mean Platelet Volume 11.4 fL (9.4-12.4); Monocytes # 0.6 K/mcL (0.0-1.3); Monocytes % 12.3 %; Platelet Count 132 K/mcL (140-400); Red Blood Count 3.35 M/mcL (4.19-5.50)
[2020-01-10 04:50] LABS: Magnesium 1.9 mg/dL (1.6-2.6); Potassium 4.6 mEq/L (3.5-5.1)
[2020-01-10 04:57] LABS: Neutrophils # 3.4 K/mcL (1.6-8.9)
[2020-01-10 04:58] LABS: Platelet Estimate Normal (Normal)
[2020-01-10] MEDS ORDERED: 0.9 % Sodium Chloride 2,000 ML ONE (06:46)
[2020-01-10] MEDS ORDERED: 0.9 % Sodium Chloride 250 ML IVC PRN (07:29)
[2020-01-10] MEDS ORDERED: 0.9 % Sodium Chloride 1,000 ML PRIME SCH (07:30)
[2020-01-10] MEDS: Insulin LISPRO 300 UNITS/3 ML VIAL SQ SCH ×3 (08:38→17:00)
[2020-01-10] MEDS: hydrALAZINE 25 MG TABLET PO SCH ×3 (08:38→22:07)
[2020-01-10] MEDS: cloNIDine HCL 0.1 MG TABLET PO SCH ×3 (08:38→22:07)
[2020-01-10] MEDS: Hydrocortisone Lotion 59 ML BOTTLE TP SCH ×3 (13:06→22:11)
[2020-01-10] MEDS: Renal Vitamin 1 CAP CAPSULE PO SCH (13:12)
[2020-01-10] MEDS: NIFEdipine XL (24 HR) 30 MG TAB.ER.24 PO SCH (13:12)
[2020-01-10] MEDS: lisinopriL 20 MG TABLET PO SCH (13:13)
[2020-01-10] MEDS: CarBAMazepine XR (12 hr) 100 MG TAB PO SCH ×2 (13:22→22:07)
[2020-01-10 14:04] LABS: Albumin 3.7 g/dL (3.5-5.7); Calcium 8.5 mg/dL (8.6-10.3); Potassium 3.5 mEq/L (3.5-5.1)
[2020-01-10] MEDS: Albumin 25% 25gram/100mL 25 GM/100 ML IV.SOLN IVPB SCH (16:24)
[2020-01-10] MEDS: Ergocalciferol (VIT D2) 50,000 UNIT (1.25MG) CAP PO SCH (19:26)
[2020-01-10] MEDS: Melatonin 3 MG TABLET PO SCH (22:06)
[2020-01-10] MEDS: traZODone 50 MG TABLET PO SCH (22:07)
[2020-01-10] MEDS: levETIRAcetam 250 MG TABLET PO SCH (22:07)
[2020-01-10] MEDS: OLANZapine 5 MG TAB.RAPDIS PO SCH (22:21)
[2020-01-11] MEDS: Albumin 25% 25gram/100mL 25 GM/100 ML IV.SOLN IVPB SCH ×2 (01:30→09:47)
[2020-01-11] MEDS: *HR* HYDROmorphone (PF) 1 MG/ML SYRINGE IVP PRN ×4 (01:32→23:27)
[2020-01-11] MEDS: Insulin LISPRO 300 UNITS/3 ML VIAL SQ SCH ×3 (09:35→16:38)
[2020-01-11] MEDS: CarBAMazepine XR (12 hr) 100 MG TAB PO SCH ×2 (09:40→20:17)
[2020-01-11] MEDS: hydrALAZINE 25 MG TABLET PO SCH ×3 (09:40→20:18)
[2020-01-11] MEDS: Renal Vitamin 1 CAP CAPSULE PO SCH (09:41)
[2020-01-11] MEDS: NIFEdipine XL (24 HR) 30 MG TAB.ER.24 PO SCH (09:41)
[2020-01-11] MEDS: cloNIDine HCL 0.1 MG TABLET PO SCH ×3 (09:41→20:17)
[2020-01-11] MEDS: levETIRAcetam 250 MG TABLET PO SCH ×2 (09:41→20:18)
[2020-01-11] MEDS: lisinopriL 20 MG TABLET PO SCH (09:41)
[2020-01-11] MEDS: Hydrocortisone Lotion 59 ML BOTTLE TP SCH ×3 (09:42→20:28)
[2020-01-11 11:19] LABS: Hemoglobin 10.8 g/dL (12.9-16.9)
[2020-01-11 11:21] LABS: Basophils % 0.7 %; Eosinophils # 0.1 K/mcL (0.0-0.6); Hematocrit 31.2 % (37.5-50.1); Immature Platelets 8.1 % (1.1-6.1); Lymphocytes # 0.8 K/mcL (0.6-4.6); Lymphocytes % 14.3 %; Mean Corpuscular HGB Conc 34.6 g/dL (31.6-35.5); Mean Corpuscular Hemoglobin 31.9 pg (28.0-33.3); Mean Platelet Volume 11.5 fL (9.4-12.4); Monocytes # 0.7 K/mcL (0.0-1.3); Monocytes % 12.5 %; Platelet Count 121 K/mcL (140-400); Red Blood Count 3.39 M/mcL (4.19-5.50); Red Cell Distribution Width 13.4 % (11.5-14.5); Segmented Neutrophils % 70.5 %; White Blood Count 5.7 K/mcL (4.3-11.1)
[2020-01-11 11:42] LABS: Albumin 3.5 g/dL (3.5-5.7); Albumin/Globulin Ratio 1.5 (1.1-2.2); Bilirubin,Total 0.7 mg/dL (0.3-1.0); Calcium 7.9 mg/dL (8.6-10.3); Globulin 2.4 g/dL (2.4-3.5); Potassium 4.7 mEq/L (3.5-5.1); Total Protein 5.9 g/dL (6.4-8.9)
[2020-01-11] MEDS: Melatonin 3 MG TABLET PO SCH (20:18)
[2020-01-11] MEDS: traZODone 50 MG TABLET PO SCH (20:18)
[2020-01-11] MEDS: OLANZapine 5 MG TAB.RAPDIS PO SCH (20:19)
[2020-01-12] MEDS: *HR* HYDROmorphone (PF) 1 MG/ML SYRINGE IVP PRN ×4 (04:52→20:40)
[2020-01-12 05:12] LABS: Hematocrit 31.5 % (37.5-50.1); Immature Granulocytes % 0.4 % (0-4); Red Cell Distribution Width 13.2 % (11.5-14.5)
[2020-01-12 05:14] LABS: Basophils # 0.1 K/mcL (0.0-0.2); Basophils % 1.2 %; Eosinophils # 0.1 K/mcL (0.0-0.6); Eosinophils % 1.6 %; Hemoglobin 10.6 g/dL (12.9-16.9); Immature Platelets 7.6 % (1.1-6.1); Lymphocytes # 1.1 K/mcL (0.6-4.6); Lymphocytes % 19.6 %; Mean Corpuscular HGB Conc 33.7 g/dL (31.6-35.5); Mean Corpuscular Hemoglobin 30.7 pg (28.0-33.3); Mean Corpuscular Volume 91.3 fL (83.0-100.0); Monocytes # 0.7 K/mcL (0.0-1.3); Monocytes % 12.7 %; Neutrophils # 3.7 K/mcL (1.6-8.9); Platelet Count 129 K/mcL (140-400); Red Blood Count 3.45 M/mcL (4.19-5.50); Segmented Neutrophils % 64.5 %; White Blood Count 5.7 K/mcL (4.3-11.1)
[2020-01-12 05:35] LABS: Albumin 3.3 g/dL (3.5-5.7); Albumin/Globulin Ratio 1.4 (1.1-2.2); Bilirubin,Total 0.6 mg/dL (0.3-1.0); Calcium 7.8 mg/dL (8.6-10.3); Globulin 2.4 g/dL (2.4-3.5); Potassium 4.5 mEq/L (3.5-5.1); Total Protein 5.7 g/dL (6.4-8.9)
[2020-01-12] MEDS ORDERED: 0.9 % Sodium Chloride 250 ML IVC PRN (07:04)
[2020-01-12] MEDS ORDERED: 0.9 % Sodium Chloride 1,000 ML PRIME SCH (07:15)
[2020-01-12] MEDS: cloNIDine HCL 0.1 MG TABLET PO SCH ×3 (07:41→20:26)
[2020-01-12] MEDS: hydrALAZINE 25 MG TABLET PO SCH ×3 (07:41→20:29)
[2020-01-12] MEDS: Insulin LISPRO 300 UNITS/3 ML VIAL SQ SCH ×3 (07:41→16:41)
[2020-01-12] MEDS: levETIRAcetam 250 MG TABLET PO SCH ×2 (07:48→20:27)
[2020-01-12] MEDS: CarBAMazepine XR (12 hr) 100 MG TAB PO SCH ×2 (07:48→20:28)
[2020-01-12] MEDS: Renal Vitamin 1 CAP CAPSULE PO SCH (07:48)
[2020-01-12] MEDS: Hydrocortisone Lotion 59 ML BOTTLE TP SCH ×3 (07:48→20:41)
[2020-01-12 09:56] LABS: AFP Tumor Marker Non-Pregnant 1 ng/mL (0-9); Cancer Antigen-GI (CA 19-9) 92 U/mL (0-37)
[2020-01-12] MEDS: NIFEdipine XL (24 HR) 30 MG TAB.ER.24 PO SCH (16:34)
[2020-01-12] MEDS: lisinopriL 20 MG TABLET PO SCH (16:34)
[2020-01-12 17:45] LABS: RBC,Peritoneal Fluid < 2000 RBC/mcL
[2020-01-12 17:53] LABS: Total Protein,Peritoneal Fluid 3.2 g/dL
[2020-01-12 18:05] LABS: Appearance of Peritoneal Fl CLEAR (Clear)
[2020-01-12] MEDS: OLANZapine 5 MG TAB.RAPDIS PO SCH (20:23)
[2020-01-12] MEDS: traZODone 50 MG TABLET PO SCH (20:25)
[2020-01-12] MEDS: Melatonin 3 MG TABLET PO SCH (20:26)
[2020-01-13] MEDS: *HR* HYDROmorphone (PF) 1 MG/ML SYRINGE IVP PRN ×3 (02:34→16:49)
[2020-01-13 03:00] LABS: Basophils # 0.1 K/mcL (0.0-0.2); Eosinophils # 0.1 K/mcL (0.0-0.6); Eosinophils % 1.6 %; Hematocrit 30.7 % (37.5-50.1); Hemoglobin 10.4 g/dL (12.9-16.9); Immature Granulocytes % 0.4 % (0-4); Lymphocytes # 0.9 K/mcL (0.6-4.6); Lymphocytes % 17.6 %; Mean Corpuscular HGB Conc 33.9 g/dL (31.6-35.5); Mean Corpuscular Hemoglobin 31.3 pg (28.0-33.3); Mean Corpuscular Volume 92.5 fL (83.0-100.0); Mean Platelet Volume 10.8 fL (9.4-12.4); Monocytes # 0.7 K/mcL (0.0-1.3); Monocytes % 14.1 %; Neutrophils # 3.3 K/mcL (1.6-8.9); Platelet Count 124 K/mcL (140-400); Red Blood Count 3.32 M/mcL (4.19-5.50); Red Cell Distribution Width 13.4 % (11.5-14.5); Segmented Neutrophils % 65.3 %; White Blood Count 5.1 K/mcL (4.3-11.1)
[2020-01-13 03:24] LABS: Albumin 3.1 g/dL (3.5-5.7); Albumin/Globulin Ratio 1.3 (1.1-2.2); Bilirubin,Total 0.6 mg/dL (0.3-1.0); Calcium 7.7 mg/dL (8.6-10.3); Globulin 2.4 g/dL (2.4-3.5); Potassium 3.7 mEq/L (3.5-5.1); Total Protein 5.5 g/dL (6.4-8.9)
[2020-01-13] MEDS: hydrALAZINE 25 MG TABLET PO SCH ×3 (09:33→22:12)
[2020-01-13] MEDS: levETIRAcetam 250 MG TABLET PO SCH ×2 (09:33→22:12)
[2020-01-13] MEDS: NIFEdipine XL (24 HR) 30 MG TAB.ER.24 PO SCH (09:34)
[2020-01-13] MEDS: cloNIDine HCL 0.1 MG TABLET PO SCH ×3 (09:34→22:13)
[2020-01-13] MEDS: lisinopriL 20 MG TABLET PO SCH (09:34)
[2020-01-13] MEDS: Renal Vitamin 1 CAP CAPSULE PO SCH (09:34)
[2020-01-13] MEDS: CarBAMazepine XR (12 hr) 100 MG TAB PO SCH ×2 (09:34→22:12)
[2020-01-13] MEDS ORDERED: Isovue-370 500 ML BOTTLE IVP ONE (10:52)
[2020-01-13 10:58] LABS: INR 1.2; Prothrombin Time 14.1 Seconds (9.4-12.1)
[2020-01-13] MEDS: Insulin LISPRO 300 UNITS/3 ML VIAL SQ SCH ×2 (13:07→16:54)
[2020-01-13] MEDS: Nystatin POWDER 30 GM BOTTLE TP SCH ×3 (16:53→22:21)
[2020-01-13] MEDS: Hydrocortisone Lotion 59 ML BOTTLE TP SCH ×2 (16:53→22:16)
[2020-01-13] MEDS: OLANZapine 5 MG TAB.RAPDIS PO SCH (22:13)
[2020-01-13] MEDS: Melatonin 3 MG TABLET PO SCH (22:13)
[2020-01-13] MEDS: traZODone 50 MG TABLET PO SCH (22:14)
[2020-01-14] MEDS: *HR* HYDROmorphone (PF) 1 MG/ML SYRINGE IVP PRN ×3 (00:19→21:00)
[2020-01-14 05:26] LABS: Basophils # 0.1 K/mcL (0.0-0.2); Eosinophils # 0.1 K/mcL (0.0-0.6); Eosinophils % 1.9 %; Hematocrit 30.1 % (37.5-50.1); Immature Granulocytes % 0.3 % (0-4); Immature Platelets 7.9 % (1.1-6.1); Lymphocytes # 1.1 K/mcL (0.6-4.6); Lymphocytes % 19.4 %; Mean Corpuscular HGB Conc 33.2 g/dL (31.6-35.5); Mean Corpuscular Hemoglobin 30.3 pg (28.0-33.3); Mean Corpuscular Volume 91.2 fL (83.0-100.0); Mean Platelet Volume 11.2 fL (9.4-12.4); Monocytes # 0.7 K/mcL (0.0-1.3); Monocytes % 11.2 %; Neutrophils # 3.8 K/mcL (1.6-8.9); Platelet Count 122 K/mcL (140-400); Red Cell Distribution Width 13.4 % (11.5-14.5); Segmented Neutrophils % 66.2 %; White Blood Count 5.8 K/mcL (4.3-11.1)
[2020-01-14 05:49] LABS: Calcium 7.5 mg/dL (8.6-10.3); Potassium 4.3 mEq/L (3.5-5.1)
[2020-01-14] MEDS: hydrALAZINE 25 MG TABLET PO SCH ×3 (08:15→21:00)
[2020-01-14] MEDS: Renal Vitamin 1 CAP CAPSULE PO SCH (08:15)
[2020-01-14] MEDS: Nystatin POWDER 30 GM BOTTLE TP SCH (08:15)
[2020-01-14] MEDS: lisinopriL 20 MG TABLET PO SCH (08:15)
[2020-01-14] MEDS: cloNIDine HCL 0.1 MG TABLET PO SCH ×3 (08:15→21:00)
[2020-01-14] MEDS: Hydrocortisone Lotion 59 ML BOTTLE TP SCH ×2 (08:15→15:14)
[2020-01-14] MEDS: CarBAMazepine XR (12 hr) 100 MG TAB PO SCH ×2 (08:15→20:59)
[2020-01-14] MEDS: levETIRAcetam 250 MG TABLET PO SCH ×2 (08:15→21:00)
[2020-01-14] MEDS: NIFEdipine XL (24 HR) 30 MG TAB.ER.24 PO SCH (08:15)
[2020-01-14] MEDS: Insulin LISPRO 300 UNITS/3 ML VIAL SQ SCH ×3 (08:26→17:27)
[2020-01-14 14:50] LABS: Calcium 7.6 mg/dL (8.6-10.3); Potassium 4.9 mEq/L (3.5-5.1)
[2020-01-14 14:59] LABS: Thyroid Stimulating Hormone 4.903 mcIU/mL (0.340-5.600)
[2020-01-14] MEDS: Melatonin 3 MG TABLET PO SCH (20:59)
[2020-01-14] MEDS: OLANZapine 5 MG TAB.RAPDIS PO SCH (20:59)
[2020-01-14] MEDS: traZODone 50 MG TABLET PO SCH (20:59)
[2020-01-15] MEDS: Hydrocortisone Lotion 59 ML BOTTLE TP SCH ×4 (01:24→20:41)
[2020-01-15] MEDS: Nystatin POWDER 30 GM BOTTLE TP SCH ×3 (01:24→20:41)
[2020-01-15] MEDS: *HR* HYDROmorphone (PF) 1 MG/ML SYRINGE IVP PRN ×3 (01:34→22:32)
[2020-01-15] MEDS: Ondansetron 4 MG/2 ML VIAL IVP PRN ×2 (03:18→07:57)
[2020-01-15 03:42] LABS: Basophils # 0.1 K/mcL (0.0-0.2); Basophils % 0.8 %; Eosinophils # 0.1 K/mcL (0.0-0.6); Eosinophils % 1.6 %; Hematocrit 31.1 % (37.5-50.1); Hemoglobin 10.6 g/dL (12.9-16.9); Immature Granulocytes % 0.4 % (0-4); Lymphocytes # 1.1 K/mcL (0.6-4.6); Lymphocytes % 15.5 %; Mean Corpuscular HGB Conc 34.1 g/dL (31.6-35.5); Mean Corpuscular Hemoglobin 30.5 pg (28.0-33.3); Mean Corpuscular Volume 89.4 fL (83.0-100.0); Mean Platelet Volume 11.1 fL (9.4-12.4); Monocytes # 0.8 K/mcL (0.0-1.3); Monocytes % 11.1 %; Neutrophils # 5.2 K/mcL (1.6-8.9); Platelet Count 148 K/mcL (140-400); Red Blood Count 3.48 M/mcL (4.19-5.50); Red Cell Distribution Width 13.4 % (11.5-14.5); Segmented Neutrophils % 70.6 %; White Blood Count 7.4 K/mcL (4.3-11.1)
[2020-01-15 04:09] LABS: Calcium 7.9 mg/dL (8.6-10.3); Potassium 4.8 mEq/L (3.5-5.1)
[2020-01-15 06:04] LABS: Fluid Source for Albumin ASCITES
[2020-01-15] MEDS ORDERED: 0.9 % Sodium Chloride 250 ML IVC PRN (07:22)
[2020-01-15] MEDS ORDERED: 0.9 % Sodium Chloride 1,000 ML PRIME SCH (07:30)
[2020-01-15] MEDS: Insulin LISPRO 300 UNITS/3 ML VIAL SQ SCH ×3 (07:57→18:01)
[2020-01-15 08:21] LABS: Albumin 3.1 g/dL (3.5-5.7); Albumin/Globulin Ratio 1.2 (1.1-2.2); Bilirubin,Direct 0.3 mg/dL (0.0-0.2); Bilirubin,Indirect 0.3 mg/dL (0.0-1.0); Bilirubin,Total 0.6 mg/dL (0.3-1.0); Globulin 2.6 g/dL (2.4-3.5); Total Protein 5.7 g/dL (6.4-8.9)
[2020-01-15] MEDS: levETIRAcetam 250 MG TABLET PO SCH ×2 (08:22→20:40)
[2020-01-15] MEDS: CarBAMazepine XR (12 hr) 100 MG TAB PO SCH ×2 (08:22→20:36)
[2020-01-15] MEDS: Renal Vitamin 1 CAP CAPSULE PO SCH (08:22)
[2020-01-15] MEDS: NIFEdipine XL (24 HR) 30 MG TAB.ER.24 PO SCH (12:35)
[2020-01-15] MEDS: hydrALAZINE 25 MG TABLET PO SCH ×3 (12:35→20:35)
[2020-01-15] MEDS: cloNIDine HCL 0.1 MG TABLET PO SCH ×3 (12:35→20:35)
[2020-01-15] MEDS: lisinopriL 20 MG TABLET PO SCH (12:36)
[2020-01-15] MEDS ORDERED: Perflutren Lipid Microsphere 1.3 ML in 0.9 % Sodium Chloride 8.7 ML IVP PRN (12:59)
[2020-01-15] MEDS: traZODone 50 MG TABLET PO SCH (20:36)
[2020-01-15] MEDS: OLANZapine 5 MG TAB.RAPDIS PO SCH (20:36)
[2020-01-15] MEDS: Melatonin 3 MG TABLET PO SCH (20:36)
[2020-01-16] MEDS: *HR* HYDROmorphone (PF) 1 MG/ML SYRINGE IVP PRN ×4 (02:45→21:27)
[2020-01-16 03:20] LABS: Platelet Count 123 K/mcL (140-400)
[2020-01-16 03:23] LABS: Basophils # 0.1 K/mcL (0.0-0.2); Eosinophils # 0.1 K/mcL (0.0-0.6); Hematocrit 30.6 % (37.5-50.1); Hemoglobin 9.9 g/dL (12.9-16.9); Immature Granulocytes % 0.4 % (0-4); Immature Platelets 6.3 % (1.1-6.1); Lymphocytes # 0.9 K/mcL (0.6-4.6); Lymphocytes % 17.8 %; Mean Corpuscular HGB Conc 32.4 g/dL (31.6-35.5); Mean Corpuscular Hemoglobin 29.8 pg (28.0-33.3); Mean Corpuscular Volume 92.2 fL (83.0-100.0); Monocytes # 0.6 K/mcL (0.0-1.3); Monocytes % 12.9 %; Neutrophils # 3.3 K/mcL (1.6-8.9); Red Blood Count 3.32 M/mcL (4.19-5.50); Red Cell Distribution Width 13.5 % (11.5-14.5); Segmented Neutrophils % 66.9 %; White Blood Count 4.9 K/mcL (4.3-11.1)
[2020-01-16 03:45] LABS: Albumin/Globulin Ratio 1.2 (1.1-2.2); Bilirubin,Total 0.6 mg/dL (0.3-1.0); Calcium 7.8 mg/dL (8.6-10.3); Globulin 2.5 g/dL (2.4-3.5); Total Protein 5.5 g/dL (6.4-8.9)
[2020-01-16] MEDS ORDERED: 0.9 % Sodium Chloride 250 ML IVC PRN (07:40)
[2020-01-16] MEDS ORDERED: 0.9 % Sodium Chloride 1,000 ML PRIME SCH (07:45)
[2020-01-16] MEDS: Insulin LISPRO 300 UNITS/3 ML VIAL SQ SCH ×3 (08:15→17:39)
[2020-01-16] MEDS: cloNIDine HCL 0.1 MG TABLET PO SCH ×3 (08:16→21:28)
[2020-01-16] MEDS: hydrALAZINE 25 MG TABLET PO SCH ×3 (08:16→21:29)
[2020-01-16] MEDS: NIFEdipine XL (24 HR) 30 MG TAB.ER.24 PO SCH (08:17)
[2020-01-16] MEDS: lisinopriL 20 MG TABLET PO SCH (08:17)
[2020-01-16] MEDS: Renal Vitamin 1 CAP CAPSULE PO SCH (08:24)
[2020-01-16] MEDS: levETIRAcetam 250 MG TABLET PO SCH ×2 (08:24→21:28)
[2020-01-16] MEDS: CarBAMazepine XR (12 hr) 100 MG TAB PO SCH ×2 (08:24→21:28)
[2020-01-16] MEDS: Hydrocortisone Lotion 59 ML BOTTLE TP SCH ×3 (09:24→21:29)
[2020-01-16] MEDS: Nystatin POWDER 30 GM BOTTLE TP SCH ×2 (09:24→21:29)
[2020-01-16] MEDS: Melatonin 3 MG TABLET PO SCH (21:28)
[2020-01-16] MEDS: OLANZapine 5 MG TAB.RAPDIS PO SCH (21:28)
[2020-01-16] MEDS: traZODone 50 MG TABLET PO SCH (21:28)
[2020-01-16] MEDS: Ondansetron 4 MG/2 ML VIAL IVP PRN (21:38)
[2020-01-17] MEDS: *HR* HYDROmorphone (PF) 1 MG/ML SYRINGE IVP PRN ×4 (04:00→20:26)
[2020-01-17] MEDS ORDERED: 0.9 % Sodium Chloride 250 ML IVC PRN (07:36)
[2020-01-17] MEDS ORDERED: 0.9 % Sodium Chloride 1,000 ML PRIME SCH (07:45)
[2020-01-17] MEDS: Renal Vitamin 1 CAP CAPSULE PO SCH (07:59)
[2020-01-17] MEDS: levETIRAcetam 250 MG TABLET PO SCH ×2 (07:59→20:15)
[2020-01-17] MEDS: Insulin LISPRO 300 UNITS/3 ML VIAL SQ SCH ×3 (08:00→16:41)
[2020-01-17] MEDS: CarBAMazepine XR (12 hr) 100 MG TAB PO SCH ×2 (08:00→20:16)
[2020-01-17] MEDS: Hydrocortisone Lotion 59 ML BOTTLE TP SCH ×3 (08:01→20:16)
[2020-01-17] MEDS: Nystatin POWDER 30 GM BOTTLE TP SCH ×2 (08:15→20:17)
[2020-01-17 08:25] LABS: Calcium 7.8 mg/dL (8.6-10.3); Potassium 4.5 mEq/L (3.5-5.1)
[2020-01-17] MEDS: cloNIDine HCL 0.1 MG TABLET PO SCH ×3 (11:42→20:15)
[2020-01-17] MEDS: hydrALAZINE 25 MG TABLET PO SCH ×3 (11:43→20:15)
[2020-01-17] MEDS: lisinopriL 20 MG TABLET PO SCH (11:43)
[2020-01-17] MEDS: NIFEdipine XL (24 HR) 30 MG TAB.ER.24 PO SCH (11:43)
[2020-01-17] MEDS: Ergocalciferol (VIT D2) 50,000 UNIT (1.25MG) CAP PO SCH (16:41)
[2020-01-17 20:09] VITALS: BP 176/80
[2020-01-17] MEDS: Melatonin 3 MG TABLET PO SCH (20:14)
[2020-01-17] MEDS: OLANZapine 5 MG TAB.RAPDIS PO SCH (20:15)
[2020-01-17] MEDS: traZODone 50 MG TABLET PO SCH (20:15)
== END 2020-01-17 21:08 | disposition short-term general hospital (02) | DRG 871 ==
LOC: 2NENU 11:00 → EMEROOARM 11:00 → SUATTDRO 17:12 → 2NENU 17:51 → SUATTDRO 12-28 14:50 → 2ANU 01-08 19:18
PROVIDERS: ADMIT Pharmacist; ATTEND Internal Medicine